=== PATIENT | male | born 1945 | race Two or more races ===

== ENCOUNTER 2016-10-21 15:53 | Emergency (ER) | payer MEDICARE, BC ==
[~2016-10-21] VITALS: Ht 177.8 cm; Wt 70.5 kg
[2016-10-21 15:57] VITALS: Ht 177.8 cm; Wt 70.5 kg
--- NOTE | 2016-10-21 16:06 | ERA ---
ER Documentation Chief Complaint Date/Time DATE: 10/21/16 TIME: 16:06 Chief Complaint cyst removed this morning; bleeding from wound HPI The patient is a 71-year-old male, presenting to the ER because of active bleeding from the back surgical site. He had the back infected sebaceous cyst incised and drained today by Dr Alcantar. It was packed and he was sent home. The bleeding continued therefore he came back to the office that he was sent to the ER by his physician. He denies any syncope, near syncope, weakness, neck pain, chest pain, dyspnea, abdominal pain, vomiting. He does not smoke, drink Past medical history: Diabetes mellitus Past surgical history: None ROS All systems reviewed and are negative except as per history of present illness. Medications Home Meds Reported Medications Aspirin* (Aspirin* EC) 81 Mg Tablet., 81 MG PO Q3DAYS, TAB 10/21/16 Insulin Glargine* (Lantus*) 100 Unit/Ml Soln, 40-50 UNIT SC QHS, #1 VIAL 10/21/16 Allergies Allergies: Coded Allergies: No Known Allergy (Unverified , 10/21/16) Physical Exam Vitals Vital Signs Date Time Temp Pulse Resp B/P Pulse Ox O2 Delivery O2 Flow Rate FiO2 10/21/16 15:57 98.1 80 18 180/66 98 Physical Exam Const: No acute distress. Head: Atraumatic. Eyes: Normal Conjunctiva. ENT: Normal External Ears, Nose and Mouth. Neck: Full range of motion. No meningismus. Resp: Clear to auscultation bilaterally. Cardio: Regular rate and rhythm, no murmurs. Abd: Soft, non distended, normal bowel sounds, non tender. Skin: No petechiae or rashes. Back: No midline or flank tenderness. Large back surgical site with active bleeding Ext: No cyanosis, or edema. Neur: Awake and alert. No focal deficit Psych: Normal Mood and Affect. Procedures/MDM Procedure: The packing was removed, he had active bleeding, possible arterial bleeding. I have cauterized the arterial bleeding, however it continued to bleed. It was therefore packed with surgical sounds and pressure dressing. I have consulted the on-call surgeon Dr. Pickens to come to the ER to evaluate patient Departure Diagnosis: Primary Impression: Post-op bleeding Condition: Stable Comments The patient is awaiting for surgical evaluation The patient's blood pressure was elevated (>120/80) but appears stable without evidence of hypertension emergency or urgency. The patient was counseled about the risks of hypertension and urged to pursue outpatient monitoring and therapy within a week with their primary care physician. TYRON HESS MD Oct 21, 2016 16:06
[2016-10-21] MEDS ORDERED: LANT3I SC (16:50)
[2016-10-21] MEDS ORDERED: ASPI-664 PO (16:51)
[2016-10-21 19:36] LABS: BASOPHILS % 0.4 % (0.0-2.0); EOSINOPHILS # 0.1 10^3/ul (0.0-0.5); EOSINOPHILS % 1.3 % (0.0-7.0); HEMOGLOBIN 13.8 g/dl (14.0-18.0); LYMPHOCYTES # 1.9 10^3/ul (0.8-2.9); LYMPHOCYTES % 18.9 % (15.0-51.0); MEAN CORPUSCULAR HEMOGLOBIN 30.5 pg (29.0-33.0); MEAN CORPUSCULAR HGB CONC 33.6 g/dl (32.0-37.0); MEAN CORPUSCULAR VOLUME 90.7 fl (82.0-101.0); MEAN PLATELET VOLUME 9.3 fl (7.4-10.4); MONOCYTE # 0.8 10^3/ul (0.3-0.9); MONOCYTES % 7.5 % (0.0-11.0); NEUTROPHIL # 7.2 10^3/ul (1.6-7.5); NEUTROPHILS % 71.9 % (39.0-77.0); PLATELET COUNT 208 10^3/UL (140-440); RED BLOOD COUNT 4.51 10^6/ul (4.70-6.10); RED CELL DISTRIBUTION WIDTH 13.3 % (11.5-14.5); UNCORRECTED WBC 10.1 10^3/ul (4.8-10.8); WHITE BLOOD COUNT 10.1 10^3/ul (4.8-10.8)
[2016-10-21 19:39] LABS: CONDITION 1
[2016-10-21 19:48] LABS: INR 1.07; PARTIAL THROMBOPLASTIN TIME 25.4 Sec (25.0-35.0); PROTIME 13.9 Sec (12.2-14.2); PT RATIO 1.1
[2016-10-21 19:50] LABS: POTASSIUM 4.9 mmol/L (3.5-5.1)
[2016-10-21 19:52] LABS: CREATININE 1.19 mg/dl (0.61-1.24)
[2016-10-21 19:53] LABS: CALCIUM 9.3 mg/dl (8.4-10.2)
[2016-10-21 20:17] VITALS: BP 165/80; PULSE 87; RESP 18; TEMP 98.5
--- NOTE | 2016-10-22 12:15 | CONS ---
DATE OF ADMISSION: 10/21/2016 DATE OF CONSULTATION: 10/21/2016 HISTORY OF PRESENT ILLNESS: Mr. Torres single car is a 71-year-old male who was sent to the ER by his primary care physician after undergoing a sebaceous cyst excision and developed bleeding which p ersisted throughout the day. In the ER, he was evaluated at the scene visibly bleeding vessel in th e bed. I was called for consultation. PAST MEDICAL HISTORY: Diabetes mellitus. PAST SURGICAL HISTORY: None. MEDICATIONS: 1. Aspirin. 2. Insulin. ALLERGIES: NO KNOWN DRUG ALLERGIES. PHYSICAL EXAMINATION: GENERAL: He is a well-developed, well-nourished male in some mild distress. CHEST: Clear to auscultation bilaterally. HEART: Regular rhythm. ABDOMEN: Soft, nontender, nondistended. His back has an open wound which did reveal a visible raul rial bleeding vessel. LABORATORY DATA: Show a white count of 10, hematocrit 41 and platelets of 208. Sodium 139, potassi um 4.9, chloride 100, CO2 28, BUN and creatinine of 24 and 1.2, and a glucose 196. His PT, PTT were 13.9 and 25.4 with an INR of 1.1. ASSESSMENT AND PLAN: Mr. Mesfin Bui is a 71-year-old male with a postoperative bleed from a sebaceous cyst removal. I explored the wound and suture ligated the arterial bleeding vessel. I then controlled the wound h emostasis with Floseal and packed it with Surgicel and sterile gauze. I revisualized the wound in a pproximately an hour and it was hemostatic. The patient was told to followup in my office in 1 to 2 days. Dictated By: YURIDIA FERRIS/NTS Conf#: [id number] DID#: [id number]
== END 2016-10-21 21:04 | disposition left against medical advice (07) ==
LOC: E/R 15:53
DX: L76.21 Postprocedural hemorrhage of skin and subcutaneous tissue following a dermatologic procedure (principal); E11.9 Type 2 diabetes mellitus without complications; Z79.82 Long term (current) use of aspirin; Z79.4 Long term (current) use of insulin
CPT/HCPCS: 80048; 85025; 85610; 85730; 86850; 86900; 86901; 99283